=== PATIENT | female | born 1945 | race Caucasian/White ===

== ENCOUNTER 2019-09-17 11:06 | Inpatient (IN) | payer MEDICARE, OTHER ==
[~2019-09-17] VITALS: Ht 154.9 cm; Wt 63.6 kg
[~2019-09-17 11:06] MED LIST: ASPI81TA31 OR; AVONEX SQ; CALCTAB22 OR; DEXI30CA2 PO; LEVO50TA2 OR; LEVO75TA2 OR; MOTR200T4 PO; NORV5TAB OR; VICO5TAB OR; [UNRECOGNIZED DRUG - OTHER] OR; [UNRECOGNIZED DRUG - REMARK] IM
[2019-09-17] MEDS ORDERED: NS 1,000 ML IV ONE (12:00)
[2019-09-17] MEDS ORDERED: ONDANSETRON 4MG/2ML VIAL IV ONE (12:00)
[2019-09-17 12:19] LABS: BASO # 0.1 10^3/uL (0.0-0.2); BASO % 0.9 % (0.0-1.0); EOS # 0.1 10^3/uL (0.0-0.5); HEMATOCRIT 25.4 % (36.0-47.0); HEMOGLOBIN 7.3 g/dl (12.0-15.5); LYMPH # 1.7 10^3/uL (1.5-5.0); MEAN CORPUSCULAR HEMOGLOBIN 22.3 pg (27.0-33.0); MEAN CORPUSCULAR HGB CONC 28.7 g/dl (32.0-36.5); MEAN CORPUSCULAR VOLUME 77.7 fl (80.0-96.0); MONO # 0.7 10^3/uL (0.0-0.8); MONO % 10.1 % (0.0-5.0); NEUTROPHILS # 3.8 10^3/uL (1.5-8.5); NEUTROPHILS % 59.8 % (36.0-66.0); PLATELET COUNT, AUTOMATED 413 10^3/uL (150-450); RED BLOOD COUNT 3.27 10^6/uL (4.00-5.40); WHITE BLOOD COUNT 6.4 10^3/uL (4.0-10.0)
[2019-09-17] MEDS ORDERED: ISOVUE-370 76% 100ML VIAL As Ordered ONE (12:19)
[2019-09-17 12:29] LABS: INR 1.05; PROTHROMBIN TIME 13.4 SECONDS (11.8-14.0)
[2019-09-17 12:30] LABS: PARTIAL THROMBOPLASTIN TIME 24.4 SECONDS (25.0-38.4)
[2019-09-17 12:41] LABS: ALBUMIN 3.7 GM/DL (3.2-5.2); ALT/SGPT 20 U/L (12-78); BILIRUBIN,DIRECT < 0.1 MG/DL (0.0-0.2); BILIRUBIN,TOTAL 0.2 MG/DL (0.2-1.0); LIPASE 101 U/L (73-393); TOTAL PROTEIN 7.4 GM/DL (6.4-8.2)
[2019-09-17 12:43] LABS: CK-MB VALUE MASS 1.5 NG/ML (<3.6); CPK CREATINE PHOSPHOKINASE 63 U/L (26-192); MB/CK RELATIVE INDEX 2.38 (< OR =4); TROPONIN I < 0.02 NG/ML (< 0.10)
[2019-09-17] MEDS ORDERED: PANT40TA3 PO (13:07)
[2019-09-17] MEDS ORDERED: MAGN400C PO (13:07)
[2019-09-17] MEDS ORDERED: LEVO75TA4 PO (13:07)
[2019-09-17] MEDS ORDERED: PARO20TA3 PO (13:07)
[2019-09-17] MEDS ORDERED: LISI20TA19 PO (13:07)
[2019-09-17] MEDS ORDERED: VITA50005 PO (13:07)
[2019-09-17] MEDS ORDERED: GABA-843 PO (13:07)
[2019-09-17] MEDS ORDERED: FOLI1TAB11 PO (13:07)
[2019-09-17] MEDS ORDERED: CYAN100050 PO (15:06)
[2019-09-17] MEDS ORDERED: AMLO5TAB6 PO (15:06)
[2019-09-17] MEDS ORDERED: MAGN400T3 PO (15:06)
[2019-09-17 15:18] LABS: FERRITIN 4 NG/ML (8-252); IRON (FE) 229 UG/DL (50-170); PERCENT SATURATION 51.1 % (13.2-45.0); TOTAL IRON BINDING CAPACITY 448 UG/DL (250-450)
[2019-09-17 15:23] LABS: VITAMIN B12 LEVEL 813 PG/ML (247-911)
[2019-09-17 15:24] LABS: FOLATE > 24.0 NG/ML (>5.4)
[2019-09-17] MEDS: NS 1,000 ML IV SCH (15:30)
--- NOTE | 2019-09-17 15:31 | HPEPDOC ---
General Date of Admission 09/17/19 Date of Service: Sep 17, 2019 Chief Complaint The patient is a 74-year-old female admitted with a reason for visit of Abdominal Pain. Source: Patient Timing/Duration: Day(s) Severity: Mild Associated Symptoms: Vomiting History of Present Illness Patient 74 years old female with past medical history of multiple sclerosis, hypothyroidism, hypertension, dementia presented hospital with epigastric abdominal pain. Patient stated that for past few weeks she's has been having i ntermittent epigastric pain radiated her back. Patient described pain as a dull, 8 out of 10. Today patient developed a few episodes of vomiting with increased epigastric pain. In emergency room patient was found to have no leukocytosis, she is afebrile. She was found to have hemoglobin of 7.3. Lipase within normal limit. CT scan of abdomen and pelvis was done and preliminary result patient has a large hiatal hernia. Patient denies any fever, chills, chest pain, palpitations, diarrhea or dysuria Home Medications Scheduled Amlodipine Besylate (Amlodipine Besylate) 5 Mg Tablet, 5 MG PO QPM, (Reported) Cyanocobalamin (Vitamin B-12) (Vitamin B-12) 1,000 Mcg Tablet, 1,000 MCG PO QPM, (Reported) Ergocalciferol (Vitamin D2) (Vitamin D2) 50,000 Units Cap, 50,000 UNITS PO QWEEK, (Reported) Folic Acid (Folic Acid) 1 Mg Tablet, 1 MG PO QPM, (Reported) Gabapentin (Gabapentin) 300 Mg Capsule, 300 MG PO QPM, (Reported) Levothyroxine Sodium (Levothyroxine Sodium) 75 Mcg Tablet, 75 MCG PO QPM, (Reported) Lisinopril/Hydrochlorothiazide (Lisinopril-Hctz 20-12.5 mg Tab) 1 Each Tablet, 1 TAB PO QPM, (Reported) Magnesium Oxide (Magnesium Oxide) 400 Mg Tablet, 400 MG PO QPM, (Reported) Pantoprazole Sodium (Pantoprazole Sodium) 40 Mg Tablet.dr, 40 MG PO QPM, (Reported) Paroxetine HCl (Paroxetine HCl) 20 Mg Tablet, 20 MG PO QPM, (Reported) Allergies Coded Allergies: Penicillins (Verified Allergy, Mild, UNKNOWN REACTION PER FAMILY, 09/17/19) codeine (Verified Adverse Reaction, Unknown, N/V, DIZZINESS, 09/17/19) Past Medical History Medical History Multiple sclerosis, dementia, hypothyroidism, hypertension, dementia Surgical History Hysterectomy with bilateral ovariectomy due to ectopic Family History I personally reviewed family history and found not pertinent Social History * Smoker: Denies Alcohol: Denies Drugs: denies A-FIB/CHADSVASC A-FIB History Current/History of A-Fib/PAF?: No Current PO Anticoag Therapy: No Review of Systems Constitutional: Reports: Weakness; Denies: Chills, Fever Eyes: Denies: Pain ENT: Denies: Head Aches Skin: Denies: Rash, Lesions Pulmonary: Denies: Dyspnea Cardiovascular: Denies: Chest Pain Gastrointestinal: Reports: Nausea, Vomiting, Abdominal Pain; Denies: Diarrhea Genitourinary: Denies: Dysuria Hematologic: Denies: Bruising Endocrine: Denies: Polydipsia, Polyphagia Musculoskeletal: Denies: Neck Pain Neurological: Denies: Weakness Psych: Reports: Mood Normal Physical Examination General Exam: Positive: Alert, Cooperative Eye Exam: Positive: PERRLA ENT Exam: Positive: Atraumatic Neck Exam: Positive: Supple; Negative: JVD Chest Exam: Positive: Clear to auscultation Heart Exam: Positive: Rate Normal Telemetry: Positive: No significant arrhythmia Abdomen Exam: Positive: Normal bowel sounds, Tenderness (in epigastric area) Extremity Exam: Negative: Clubbing Skin Exam: Positive: Nl turgor and temperature Neuro Exam: Positive: Strength at 5/5 X4 ext, Cranial Nerves 3-12 NL Psych Exam: Positive: Mental status NL Vital Signs Vital Signs Date Time Temp Pulse Resp B/P (MAP) Pulse Ox O2 Delivery O2 Flow Rate FiO2 09/17/19 11:41 Manual Cuff/Auscultation Left Arm 09/17/19 11:07 97.8 78 20 99 Room Air Laboratory Data Labs 24H Laboratory Tests 2 09/17/19 11:58: Immature Granulocyte % (Auto) 0.2, Neutrophils (%) (Auto) 59.8, Lymphocytes (%) (Auto) 27.0, Monocytes (%) (Auto) 10.1H, Eosinophils (%) (Auto) 2.0, Basophils (%) (Auto) 0.9, Neutrophils # (Auto) 3.8, Lymphocytes # (Auto) 1.7, Monocytes # (Auto) 0.7, Eosinophils # (Auto) 0.1, Basophils # (Auto) 0.1, Nucleated Red Blood Cells % (auto) 0.0, Prothrombin Time 13.4, Prothromb Time International Ratio 1.05, Activated Partial Thromboplast Time 24.4L, Lactic Acid Level 1.4, Total Bilirubin 0.2, Direct Bilirubin < 0.1, Aspartate Amino Transf (AST/SGOT) 14, Alanine Aminotransferase (ALT/SGPT) 20, Alkaline Phosphatase 69, Total Creatine Kinase 63, Creatine Kinase MB 1.5, Creatine Kinase MB Relative Index 2.38, Troponin I < 0.02, Total Protein 7.4, Albumin 3.7, Albumin/Globulin Ratio 1.0L, Lipase 101 09/17/19 12:13: POC Glucose (Misc Panel) 110H, POC Sodium (Misc Panel) 141, POC Potassium (Misc Panel) 3.7, POC Chloride (Misc Panel) 106, POC Total CO2 (Misc Panel) 23.0, POC Blood Urea Nitrogen (Misc Panel 20, POC Ionized Calcium (Misc Panel) 4.8, POC Creatinine (Misc Panel) 1.0, POC Hematocrit (Misc Panel) 26.0L CBC/BMP Laboratory Tests 09/17/19 11:58 Assessment/Plan Patient 74 years old female with past medical history of multiple sclerosis, hypothyroidism, hypertension, dementia presented hospital with epigastric abdominal pain. Patient stated that for past few weeks she's has been having intermittent epigastric pain radiated her back. Patient described pain as a dull, 8 out of 10. Today patient developed a few episodes of vomiting with increased epigastric pain. In emergency room patient was found to have no leukocytosis, she is afebrile. She was found to have hemoglobin of 7.3. Lipase within normal limit. CT scan of abdomen and pelvis was done and preliminary result patient has a large hiatal hernia. Patient denies any fever, chills, chest pain, palpitations, diarrhea or dysuria Problems (1) Epigastric pain Status: Acute Problem Text: Differential diagnosis includes gastritis, esophagitis, peptic ulcer, AVM PPI IV Most likely patient will need colonoscopy and EGD H&H every 6 hours Appreciate/agree with GI consult (2) Hiatal hernia Status: Acute Problem Text: Can be precipitating factor of acute gastritis with bleeding (3) Acute blood loss anemia Status: Acute Problem Text: Most likely secondary to GI bleed given low MCV We will check iron panel, B12, folate We will transfuse if hemoglobin less than 7 Plan / VTE VTE Prophylaxis Ordered?: No VTE Exclusion Pharmacological: Active Bleeding SVITLANA HICKS DO Sep 17, 2019 15:31
--- NOTE | 2019-09-17 15:38 | REP ---
REASON FOR EXAM: Back pain. Assess for possible aortic dissection. CONTRAST: 100 mL of Isovue 370. The thoracic aorta is seen without aneurysmal dilatation or ectasia. There is no evidence of a dissection. The acceptably opacified pulmonary arteries are also within normal limits. There are no pleural or pericardial effusions. There is no mediastinal or hilar adenopathy. There is a large hiatal hernia. The imaged upper abdomen is otherwise within normal limits. The imaged osseous structures are within normal limits for the patient's age. Evaluation of the lung eastman shows 2 nodules in the left lower lobe both pleural-based one measuring 8 mm and the other measuring 5 mm. IMPRESSION: 1. There is no evidence of an intrathoracic arterial abnormality as described above. 2. Two left lower lobe pulmonary nodules, the largest of which measures 8 mm. According to the revised Fleischner Society criteria , this represents a category 4A nodule for which a 3-month followup CT is recommended. 3. There is a large hiatal hernia. Electronically Signed by Dawit Wheatley DO 09/17/2019 04:07 P
--- NOTE | 2019-09-17 15:47 | REP ---
REASON: Upper abdominal pain. PRIORS: None. CONTRAST 100 mL Isovue 370. In the liver there is a 1 cm sized cyst in the lateral segment of the left lobe. The liver is otherwise unremarkable. The gallbladder, spleen, pancreas, adrenal glands, and kidneys are within normal limits. The abdominal aorta and para-aortic regions are within normal limits. There is a large hiatal hernia. The bowel loops and their mesenteries are otherwise unremarkable. There is no free fluid or free air seen in the abdomen or pelvis. There is no evidence of an intra-abdominal or intrapelvic mass or adenopathy. Bone window technique through the exam shows the osseous structures to be within normal limits for the patient's age. IMPRESSION: 1. Large hiatal hernia. 2. Small simple hepatic cyst. Electronically Signed by Dawit Wheatley DO 09/17/2019 04:56 P
[2019-09-17 17:05] LABS: HEMATOCRIT 25.3 % (36.0-47.0); HEMOGLOBIN 7.1 g/dl (12.0-15.5)
[2019-09-17 17:40] VITALS: BP 152/72
--- NOTE | 2019-09-17 20:58 | ECGEPIP ---
[facility] - ED Test Date: 2019-09-17 Pat Name: HERMINIO WHEELER Department: Room: - Gender: Female Dog Obedience Instructor: KANDI : 1945 Requested By: Kika Turcios Order Number: [id number] Reading MD: Kika Turcios Measurements Intervals [place] Rate: 71 P: 21 MI: 159 QRS: -11 QRSD: 84 T: 29 QT: 386 QTc: 421 Interpretive Statements SINUS RHYTHM WITH SINUS ARRHYTHMIA NSTTW abnormalities NO PRIOR Electronically Signed on 09-17-2019 20:58:12 EDT by Kika Turcios
[2019-09-17] MEDS: LEVOTHYROXINE 75MCG TABLET (0.075MG) PO SCH (21:02)
[2019-09-17] MEDS: MAGNESIUM OXIDE 400 MG TAB (MAG-OX) PO SCH (21:02)
[2019-09-17] MEDS: GABAPENTIN 300 MG CAP PO SCH (21:02)
[2019-09-17] MEDS: PARoxetine 20 MG TAB PO SCH (21:03)
[2019-09-17] MEDS: PANTOPRAZOLE 40MG VIAL (C9113 PER 1) IV SCH (21:03)
[2019-09-17] MEDS: amLODIPine 5 MG TAB PO SCH (21:06)
[2019-09-17 21:26] LABS: HEMATOCRIT 24.8 % (36.0-47.0)
[2019-09-17 21:33] LABS: HEMOGLOBIN 6.9 g/dl (12.0-15.5)
[2019-09-17 22:00] VITALS: BP 124/73
[2019-09-17 22:40] VITALS: BP 131/59
[2019-09-17 22:55] VITALS: BP 145/64
[2019-09-17] MEDS: ACETAMINOPHEN TAB 650MG DOSE (2X325MG) PO PRN (23:03)
[2019-09-17 23:47] VITALS: BP 146/63
[2019-09-18] VITALS (9 sets, daily range): BP systolic 103–160; BP diastolic 55–92
[2019-09-18] MEDS: NS 1,000 ML IV SCH ×3 (02:40→21:47)
[2019-09-18 03:55] LABS: HEMATOCRIT 32.1 % (36.0-47.0); HEMOGLOBIN 9.7 g/dl (12.0-15.5)
[2019-09-18 06:39] LABS: HEMATOCRIT 32.6 % (36.0-47.0); HEMOGLOBIN 9.9 g/dl (12.0-15.5); MEAN CORPUSCULAR HEMOGLOBIN 24.6 pg (27.0-33.0); MEAN CORPUSCULAR HGB CONC 30.4 g/dl (32.0-36.5); MEAN CORPUSCULAR VOLUME 80.9 fl (80.0-96.0); PLATELET COUNT, AUTOMATED 366 10^3/uL (150-450); RED BLOOD COUNT 4.03 10^6/uL (4.00-5.40)
[2019-09-18 06:59] LABS: ALBUMIN 3.4 GM/DL (3.2-5.2); ALT/SGPT 17 U/L (12-78); BILIRUBIN,TOTAL 1.2 MG/DL (0.2-1.0); BLOOD UREA NITROGEN 12 MG/DL (7-18); CALCIUM LEVEL 8.3 MG/DL (8.8-10.2); CARBON DIOXIDE LEVEL 27 MEQ/L (21-32); CHLORIDE LEVEL 110 MEQ/L (98-107); CREATININE FOR GFR 0.95 MG/DL (0.55-1.30); GLOMERULAR FILTRATION RATE > 60.0 (>39); GLUCOSE, FASTING 87 MG/DL (70-100); MAGNESIUM LEVEL 2.2 MG/DL (1.8-2.4); SODIUM LEVEL 143 MEQ/L (136-145); TOTAL PROTEIN 6.6 GM/DL (6.4-8.2)
[2019-09-18] MEDS ORDERED: IRON SUCROSE 100MG 5ML VIAL (J1756 PER 1MG) IV SCH (08:15)
[2019-09-18] MEDS: PANTOPRAZOLE 40MG VIAL (C9113 PER 1) IV SCH ×2 (09:22→20:16)
[2019-09-18] MEDS ORDERED: IRON SUCROSE 200 MG in NS 100 ML OVER 1 HR IV ONE (10:00)
--- NOTE | 2019-09-18 12:28 | IPNPDOC ---
Text Note Date of Service The patient was seen on 09/18/19. NOTE Patient was seen and examined this morning. Denies any complaints. No overnight events PHYSICAL EXAMINATION: General: The patient is awake, alert, oriented x3, sitting up in the bed in no apparent distress. Head and Neck Exam: Extraocular muscles intact. Pupils equally round and reactive to light. Mucous membranes are moist. Neck is supple. There is no jugular venous distention (JVD). Cardiovascular: S1 and S2, regular rate. Trace edema of the bilateral lower extremities. Respiratory: Clear auscultation bilaterally Abdomen: Soft. Positive bowel sounds. Nontender. No organomegaly. Musculoskeletal: Clubbing of the fingernails, no cyanosis was noted. Central Nervous System (EXTERNAL GRINDER TENDER): No focal deficit. Power is 5/5 in all extremi ties. Assessment and plan Patient 74 years old female with past medical history of multiple sclerosis, hypothyroidism, hypertension, dementia presented hospital with epigastric abdominal pain. Patient stated that for past few weeks she's has been having intermittent epigastric pain radiated her back. Patient described pain as a dull, 8 out of 10. Patient also developed a few episodes of vomiting with increased epigastric pain. In emergency room patient was found to have no leukocytosis, she is afebrile. She was found to have hemoglobin of 7.3. Lipase within normal limit. CT scan of abdomen and pelvis was done and preliminary result patient has a large hiatal hernia. Patient denies any fever, chills, chest pain, palpitations, diarrhea or dysuria (1) Epigastric pain: Differential diagnosis includes gastritis, esophagitis, peptic ulcer, AVM. Continue IV PPI. GI has been consulted and the patient probably will require an endoscopy. The patient has extremely low iron levels as well as ferritin levels and definitely has some iron deficiency anemia going on. The patient will require possibly endoscopy as well as colonoscopy. Vision has had no screening colonoscopy so far and she 74 years old. Stool for occult blood will be ordered as well. (2) Hiatal hernia: Could be an ulcer related to hiatal hernia and for that reason GI is consulted (3) Acute blood loss anemia: Status post 2 units of PRBC Iron deficiency anemia with stream below ferritin and iron levels. IV iron has been initiated and the patient will be getting a possible colonoscopy and EGD by GI. We will continue to follow. We will transfuse if the hemoglobin is less than 7. DVT professor with SCDs Disposition unknown at this time VS,Nimabone, I+O VS, Fishbone, I+O Laboratory Tests 09/17/19 16:22 09/17/19 21:13 09/18/19 03:49 09/18/19 06:06 Vital Signs Date Time Temp Pulse Resp B/P (MAP) Pulse Ox O2 Delivery O2 Flow Rate FiO2 09/18/19 06:00 98.4 73 17 103/56 (72) 94 Room Air I&O- Last 24 Hours up to 6 AM 09/18/19 06:00 Intake Total 4825 ml Output Total 450 ml Balance 4375 ml MARJ CHUN MD Sep 18, 2019 12:28
[2019-09-18] MEDS: ACETAMINOPHEN TAB 650MG DOSE (2X325MG) PO PRN (13:16)
[2019-09-18] MEDS ORDERED: GOLYTELY SOLN 4000 ML BTL PO ONE (18:00)
--- NOTE | 2019-09-18 19:18 | CR.PDOC ---
General Date of Consultation: Sep 18, 2019 Referring Provider: SVITLANA HICKS DO Attending Physician: SCOTTY SAXENA MD Consultation Primary physician/ hospitalist: -Dr. Carrillo Reason for consult: -Severe symptomatic anemia HPI: 74-year-old female patient with HTN, hypothyroidism, multiple sclerosis, presented to ER for complaints of intermittent epigastric abdominal pain, and was noted to have severe anemia. GI was consulted for anemia. Patient reports having chronic upper abdominal pain, [id number] in severity, worsened with food intake, associated with decreased appetite and early satiety. Patient denies any use of OTC pain medications/NSAIDs, and blood thinning medications (except baby aspirin for primary cardiac prophylaxis). Patient also reports chronic constipation with bowel movements every 2-3 days. She denies any overt external bleeding, black stools, nosebleeds, vomiting of blood. Pertinent negative GI symptoms: Patient denies fever, sick contacts, recent travel, nausea, vomiting, diarrhea, or unintentional weight loss. No history of hematemesis, melena or hematochezia. Review of Systems: GI: as stated above CVS: No chest pain, No palpitations, No leg swelling. RS: No Shortness of breath, No Wheezing, no cough SLUICE TENDER: No dizziness, No motor weakness, No sensory problems Hematology: No bruising, No gum bleeding, Musculoskeletal: No joint pain, ambulating well. Skin: No rash : No hematuria, No burning sensation of the urine ENT: No ear discharge/ pain, No dysphagia. Eyes: No photophobia. Jaundice Home medications: reviewed. Antithrombotic agents: -Aspirin 81 MG Medical h/o: As above. Surgical h/o: None on abdomen. Social h/o: Alcohol: -Denies, smoking: Denies, IVDA/ drugs: [ ] . Family h/o of GI cancers - None Prior Endoscopies: None Prior GI evaluations: -None Exam: Vitals: reviewed General: Alert and oriented x 3, not in distress HEENT: Noted conjunctival pallor, no icterus. Normal oropharynx, NO cervical lymph nodes. Chest: symmetric with bilateral clear air entry, CVS: S1, S2 heard, normal, no murmurs . Abdomen: non-distended, no surgical scars, soft, non-tender, no palpable masses, normal bowel sounds heard. Rectal exam: Patient refused / Deferred at this time in view of scheduled colonoscopy. Extremities: no pedal edema, pulses palpable. SLUICE TENDER: no focal motor or sensory deficits. Moves all extremities Skin: no rash. Labs: reviewed. Imaging: reviewed. CT abdomen showed large hiatal hernia, small, simple hepatic cyst of 1 cm size. Impression: -- Severe anemia with epigastric pain and chronic constipation and no overt external bleeding and no prior endoscopies, -- DDx-- PUD vs AVM vs Colon polyps vs Colon cancer. Recommendations: - Patient educated about the test results, possible differential diagnoses and All questions answered. - Clear liquid diet until 4 hours prior to procedure. - Pantoprazole 40 mg twice daily for course of 8 weeks. - No contraindication for aspirin 81mg - Daily miralax for chronic constipation. - Will schedule for EGD and Colonoscopy after the bowel prep. The procedures, indications, risks (bleeding, perforation, infection, hypotension, respiratory depression, allergy, need for endotracheal intubation, surgery, colostomy, cardiac arrest, even ), benefits, limitations (e.g., missing a lesion), and all other alternatives (including no intervention) were explained to the patient who understood and agreed for the procedures. - post procedure recommendations as per operative notes. Plan of care discussed with patient and primary team. Patient verbalized understanding and agreed with the plan. Vital Signs/I&O Vital Signs Date Time Temp Pulse Resp B/P (MAP) Pulse Ox O2 Delivery O2 Flow Rate FiO2 09/18/19 14:00 97.7 68 18 160/77 (104) 94 Room Air I&O- Last 24 Hours up to 6 AM 09/18/19 06:00 Intake Total 4825 ml Output Total 450 ml Balance 4375 ml Laboratory Data Labs 24H Laboratory Tests 2 09/18/19 06:06: Reticulocyte # (auto) 70.6, Nucleated Red Blood Cells % (auto) 0.0, Percent Reticulocyte Count 1.8H, Reticulocyte Hemoglobin Equivalent 24.1, Anion Gap 6L, Glomerular Filtration Rate > 60.0, Calcium Level 8.3L, Magnesium Level 2.2, Total Bilirubin 1.2#H, Aspartate Amino Transf (AST/SGOT) 12, Alanine Aminotran sferase (ALT/SGPT) 17, Alkaline Phosphatase 60, Total Protein 6.6, Albumin 3.4, Albumin/Globulin Ratio 1.1L CBC/BMP Laboratory Tests 09/17/19 21:13 09/18/19 03:49 09/18/19 06:06 Allergies Coded Allergies: Penicillins (Verified Allergy, Mild, UNKNOWN REACTION PER FAMILY, 09/17/19) codeine (Verified Adverse Reaction, Unknown, N/V, DIZZINESS, 09/17/19) Home Medications Scheduled Amlodipine Besylate (Amlodipine Besylate) 5 Mg Tablet, 5 MG PO QPM, (Reported) Cyanocobalamin (Vitamin B-12) (Vitamin B-12) 1,000 Mcg Tablet, 1,000 MCG PO QPM, (Reported) Ergocalciferol (Vitamin D2) (Vitamin D2) 50,000 Units Cap, 50,000 UNITS PO QWEEK, (Reported) Folic Acid (Folic Acid) 1 Mg Tablet, 1 MG PO QPM, (Reported) Gabapentin (Gabapentin) 300 Mg Capsule, 300 MG PO QPM, (Reported) Levothyroxine Sodium (Levothyroxine Sodium) 75 Mcg Tablet, 75 MCG PO QPM, (Reported) Lisinopril/Hydrochlorothiazide (Lisinopril-Hctz 20-12.5 mg Tab) 1 Each Tablet, 1 TAB PO QPM, (Reported) Magnesium Oxide (Magnesium Oxide) 400 Mg Tablet, 400 MG PO QPM, (Reported) Pantoprazole Sodium (Pantoprazole Sodium) 40 Mg Tablet.dr, 40 MG PO QPM, (Reported) Paroxetine HCl (Paroxetine HCl) 20 Mg Tablet, 20 MG PO QPM, (Reported) SCOTTY SAXENA MD Sep 18, 2019 19:18
[2019-09-18] MEDS ORDERED: BISACODYL 5 MG TAB PO ONE (20:00)
[2019-09-18] MEDS: PARoxetine 20 MG TAB PO SCH (20:16)
[2019-09-18] MEDS: GABAPENTIN 300 MG CAP PO SCH (20:16)
[2019-09-18] MEDS: MAGNESIUM OXIDE 400 MG TAB (MAG-OX) PO SCH (20:16)
[2019-09-18] MEDS: LEVOTHYROXINE 75MCG TABLET (0.075MG) PO SCH (20:16)
[2019-09-18] MEDS: amLODIPine 5 MG TAB PO SCH (20:18)
[2019-09-19] VITALS (10 sets, daily range): BP systolic 121–147; BP diastolic 59–82
[2019-09-19 06:04] LABS: BASO # 0.1 10^3/uL (0.0-0.2); BASO % 1.4 % (0.0-1.0); EOS # 0.2 10^3/uL (0.0-0.5); EOS % 3.6 % (0.0-3.0); HEMATOCRIT 33.2 % (36.0-47.0); LYMPH # 1.1 10^3/uL (1.5-5.0); MEAN CORPUSCULAR HEMOGLOBIN 24.3 pg (27.0-33.0); MEAN CORPUSCULAR HGB CONC 30.1 g/dl (32.0-36.5); MEAN CORPUSCULAR VOLUME 80.8 fl (80.0-96.0); MONO # 0.7 10^3/uL (0.0-0.8); MONO % 12.1 % (0.0-5.0); NEUTROPHILS # 3.8 10^3/uL (1.5-8.5); NEUTROPHILS % 64.7 % (36.0-66.0); PLATELET COUNT, AUTOMATED 339 10^3/uL (150-450); RED BLOOD COUNT 4.11 10^6/uL (4.00-5.40); WHITE BLOOD COUNT 5.9 10^3/uL (4.0-10.0)
[2019-09-19 06:46] LABS: ALBUMIN 3.5 GM/DL (3.2-5.2); ALT/SGPT 18 U/L (12-78); BILIRUBIN,TOTAL 0.4 MG/DL (0.2-1.0); BLOOD UREA NITROGEN 6 MG/DL (7-18); CALCIUM LEVEL 8.4 MG/DL (8.8-10.2); CARBON DIOXIDE LEVEL 26 MEQ/L (21-32); CHLORIDE LEVEL 111 MEQ/L (98-107); CREATININE FOR GFR 0.86 MG/DL (0.55-1.30); GLOMERULAR FILTRATION RATE > 60.0 (>39); GLUCOSE, FASTING 93 MG/DL (70-100); POTASSIUM SERUM 3.6 MEQ/L (3.5-5.1); SODIUM LEVEL 145 MEQ/L (136-145)
[2019-09-19] MEDS: PANTOPRAZOLE 40MG VIAL (C9113 PER 1) IV SCH ×2 (08:04→20:44)
[2019-09-19] MEDS: NS 1,000 ML IV SCH (08:04)
[2019-09-19] MEDS ORDERED: IRON SUCROSE 100MG 5ML VIAL (J1756 PER 1MG) IV ONE (09:00)
[2019-09-19] MEDS ORDERED: IRON SUCROSE 200 MG in NS 100 ML OVER 1 HR IV ONE (11:00)
--- NOTE | 2019-09-19 11:13 | IPNPDOC ---
Text Note Date of Service The patient was seen on 09/19/19. NOTE Patient was seen and examined this morning. Denies any complaints. No overnight events. Scheduled for colonoscopy and EGD today PHYSICAL EXAMINATION: General: The patient is awake, alert, oriented x3, sitting up in the bed in no apparent distress. Head and Neck Exam: Extraocular muscles intact. Pupils equally round and reactive to light. Mucous membranes are moist. Neck is supple. There is no jugular venous distention (JVD). Cardiovascular: S1 and S2, regular rate. Trace edema of the bilateral lower extremities. Respiratory: Clear auscultation bilaterally Abdomen: Soft. Positive bowel sounds. Nontender. No organomegaly. Musculoskeletal: Clubbing of the fingernails, no cyanosis was noted. Central Nervous System (FORESTRY WORKERS): No focal deficit. Power is 5/5 in all extremities. Assessment and plan Patient 74 years old female with past medical history of multiple sclerosis, hypothyroidism, hypertension, dementia presented hospital with epigastric abdominal pain. Patient stated that for past few weeks she's has been having intermittent epigastric pain radiated her back. She was found to have hemoglobin of 7.3 and has been transfused 2 units of PRBC so far. Lipase within normal limit. CT scan of abdomen and pelvis was done which only showed large hiatal hernia.. She has not had a colonoscopy for screening purposes or an EGD , and iron studies were showing severe iron deficiency anemia. Her ferritin is almost negligible and percentage iron is very low. For that reason, she will definitely require an 8 EGD and a colonoscopy. GI is planning to do today. As the ferritin was extremely low. The patient was given 200 of Venofer on 09/18/19 and will be given 1 more dose today on 09/19/19. I would recommend giving 1 more dose before she can be discharged tomorrow or day after and then iron can be switched to oral. Reticulocyte count. Also has been ordered. (1) Epigastric pain: Differential diagnosis includes gastritis, esophagitis, peptic ulcer, AVM or any colorectal cancer. Continue IV PPI. GI has been consulted and the patient is scheduled for both endoscopy and colonoscopy today. The patient has extremely low iron levels as well as ferritin levels and definitely has some iron deficiency anemia going on. (2) Hiatal hernia: Could be an ulcer related to hiatal hernia and for that reason GI is consulted (3) Acute blood loss anemia: Status post 2 units of PRBC Iron deficiency anemia with stream below ferritin and iron levels. IV iron has been initiated. We will continue to follow. We will transfuse if the hemoglobin is less than 7. DVT prophylaxis with SCDs Disposition unknown at this time. Eventually will go home VS,Fishbone, I+O VS, Fishbone, I+O Laboratory Tests 09/19/19 05:45 Vital Signs Date Time Temp Pulse Resp B/P (MAP) Pulse Ox O2 Delivery O2 Flow Rate FiO2 09/19/19 06:00 98.3 64 16 124/59 (80) 99 Room Air I&O- Last 24 Hours up to 6 AM 09/19/19 06:00 Intake Total 1330 ml Output Total 1100 ml Balance 230 ml MARJ CHUN MD Sep 19, 2019 11:13
[2019-09-19] MEDS ORDERED: ONDANSETRON 4MG/2ML VIAL As Ordered ONE (13:29)
[2019-09-19] MEDS ORDERED: propofoL 200 MG/20 ML VIAL As Ordered ONE ×2 (13:29→13:52)
[2019-09-19] MEDS ORDERED: LIDOCAINE 2% 100MG/5ML SDV (FOR ANES.) As Ordered ONE ×2 (13:29→13:39)
[2019-09-19] MEDS ORDERED: dexameTHASONE 4 MG/ML 1ML VIAL (J1100 PER 1MG) As Ordered ONE (13:29)
[2019-09-19] MEDS ORDERED: LR 1,000 ML IV SCH (15:45)
[2019-09-19] MEDS ORDERED: ONDANSETRON 4MG/2ML VIAL IV PRN (15:45)
--- NOTE | 2019-09-19 15:51 | ROOR ---
Patient Name: Zaina Hammond Procedure Date: 09/19/2019 2:05 PM Date of : 1945 Age: 74 Room: Main OR Gender: Female Note Status: Finalized Procedure: Upper GI endoscopy Indications: Epigastric abdominal pain, Iron deficiency anemia Providers: Allan Daniel MD Referring MD: Amor Rojas Do Requesting Provider: Medicines: Monitored Anesthesia Care Complications: No immediate complications. Procedure: Pre-Anesthesia Assessment: - Prior to the procedure, a History and Physical was performed, and patient medications and allergies were reviewed. The patient is competent. The risks and benefits of the procedure and the sedation options and risks were discussed with the patient. All questions were answered and informed consent was obtained. Patient identification and proposed procedure were verified by the physician, the nurse and the anesthesiologist in the procedure room. Mental Status Examination: alert and oriented. Airway Examination: normal oropharyngeal airway and neck mobility. Respiratory Examination: clear to auscultation. CV Examination: normal. Prophylactic Antibiotics: The patient does not require prophylactic antibiotics. Prior Anticoagulants: The patient has taken no previous anticoagulant or antiplatelet agents. ASA Grade Assessment: II - A patient with mild systemic disease. After reviewing the risks and benefits, the patient was deemed in satisfactory condition to undergo the procedure. The anesthesia plan was to use monitored anesthesia care (MAC). Immediately prior to administration of medications, the patient was re-assessed for adequacy to receive sedatives. The heart rate, respiratory rate, oxygen saturations, blood pressure, adequacy of pulmonary ventilation, and response to care were monitored throughout the procedure. The physical status of the patient was re-assessed after the procedure. The Endoscope was introduced through the mouth, and advanced to the second part of duodenum. The upper GI endoscopy was accomplished without difficulty. The patient tolerated the procedure well. Findings: LA Grade C (one or more mucosal breaks continuous between tops of 2 or more mucosal folds, less than 75% circumference) esophagitis with no bleeding was found 30 to 35 cm from the incisors. One linear esophageal ulcer with no bleeding and no stigmata of recent bleeding was found 32 to 34 cm from the incisors. The lesion was less than one mm in largest dimension. A large hiatal hernia was present. Scattered mild inflammation characterized by erythema and granularity was found in the gastric antrum. Biopsies were taken with a cold forceps for Helicobacter pylori testing. Verification of patient identification for the specimen was done by the physician and nurse using the patient's name, date and medical record number. Estimated blood loss was minimal. The duodenal bulb and second portion of the duodenum were normal. Impression: - LA Grade C reflux and erosive esophagitis. - Non-bleeding esophageal ulcer. - Large hiatal hernia. - Gastritis. Biopsied. - Normal duodenal bulb and second portion of the duodenum. Recommendation: - Patient has a contact number available for emergencies. The signs and symptoms of potential delayed complications were discussed with the patient. Return to normal activities tomorrow. Written discharge instructions were provided to the patient. - High fiber diet. - Continue present medications. - Await pathology results. - Use Protonix (pantoprazole) 40 mg PO twice daily - to be taken in morning (1/2 hour before breakfast) and at bedtime ( atleast 3 hours after last meal) for 3 months. - Use sucralfate suspension 1 gram PO QID for 4 weeks. - Follow an antireflux regimen. - Repeat upper endoscopy in 3 months to check healing. - Telephone GI clinic for pathology results in 2 weeks. - Return to GI clinic in [facility] (address [address], [address], [place], [address]) in 4 -- 6 weeks. Please call GI clinic @ [phone] for apppointment date and time. - Return to primary care physician. Allan Daniel MD Allan Daniel MD 09/19/2019 3:50:52 PM Electronically signed by Allan Daniel MD Number of Addenda: 0 Note Initiated On: 09/19/2019 2:05 PM Estimated Blood Loss: Estimated blood loss: none.
--- NOTE | 2019-09-19 15:59 | ROOR ---
Patient Name: Zaina Hammond Procedure Date: 09/19/2019 2:08 PM Date of : 1945 Age: 74 Room: Main OR Gender: Female Note Status: Finalized Procedure: Colonoscopy Indications: Iron deficiency anemia, Unexplained iron deficiency anemia Providers: Allan Daniel MD Referring MD: Amor Rojas Do Requesting Provider: Medicines: Monitored Anesthesia Care Complications: No immediate complications. Procedure: Pre-Anesthesia Assessment: - Prior to the procedure, a History and Physical was performed, and patient medications and allergies were reviewed. The patient is competent. The risks and benefits of the procedure and the sedation options and risks were discussed with the patient. All questions were answered and informed consent was obtained. Patient identification and proposed procedure were verified by the physician, the nurse and the anesthesiologist in the procedure room. Mental Status Examination: alert and oriented. Airway Examination: normal oropharyngeal airway and neck mobility. Respiratory Examination: clear to auscultation. CV Examination: normal. Prophylactic Antibiotics: The patient does not require prophylactic antibiotics. Prior Anticoagulants: The patient has taken no previous anticoagulant or antiplatelet agents. ASA Grade Assessment: II - A patient with mild systemic disease. After reviewing the risks and benefits, the patient was deemed in satisfactory condition to undergo the procedure. The anesthesia plan was to use monitored anesthesia care (MAC). Immediately prior to administration of medications, the patient was re-assessed for adequacy to receive sedatives. The heart rate, respiratory rate, oxygen saturations, blood pressure, adequacy of pulmonary ventilation, and response to care were monitored throughout the procedure. The physical status of the patient was re-assessed after the procedure. The Colonoscope was introduced through the anus and advanced to the terminal ileum, with identification of the appendiceal orifice and IC valve. The colonoscopy was performed without difficulty. The patient tolerated the procedure well. The quality of the bowel preparation was good. The terminal ileum, ileocecal valve, appendiceal orifice, and rectum were photographed. Scope insertion time was 6 minutes. Scope withdrawal time was 10 minutes. The total duration of the procedure was 16 minutes. Findings: The perianal and digital rectal examinations were normal. The terminal ileum appeared normal. Multiple small and large-mouthed diverticula were found from sigmoid to ascending colon. There was no evidence of diverticular bleeding. A 6 mm polyp was found in the rectum. The polyp was sessile. The polyp was removed with a cold biopsy forceps. Resection and retrieval were complete. Verification of patient identification for the specimen was done by the physician and nurse using the patient's name, date and medical record number. Estimated blood loss was minimal. A scar was found from sigmoid to splenic flexure. The scar tissue was healthy in appearance, likely healed from ischemic ulcer. The scar tissue was longitudinal and located in the watershed area of [place] and [place] teritories. Non-bleeding external and internal hemorrhoids were found during retroflexion. The hemorrhoids were medium-sized. Impression: - The examined portion of the ileum was normal. - Moderate diverticulosis from sigmoid to ascending colon. There was no evidence of diverticular bleeding. - One 6 mm polyp in the rectum, removed with a cold biopsy forceps. Resected and retrieved. - Scar from sigmoid to splenic flexure. - Non-bleeding external and internal hemorrhoids. Recommendation: - Patient has a contact number available for emergencies. The signs and symptoms of potential delayed complications were discussed with the patient. Return to normal activities tomorrow. Written discharge instructions were provided to the patient. - High fiber diet. - Continue present medications. - Miralax 1 capful (17 grams) in 8 ounces of water PO BID (dose to be adjusted to avoid constipation). - Await pathology results. - Adequate hydration and avoid Hypotension. - Follow the recommendations as per the other procedure note. - Repeat colonoscopy in 5-10 years for surveillance based on pathology results and depending on clinical and functional status. - Return to GI clinic in [facility] (address [address], [address], [place], [facility]) in 4 -- 6 weeks. Please call GI clinic @ [phone] for apppointment date and time. - Return to primary care physician. Allan Danile MD Allan Daniel MD 09/19/2019 3:59:12 PM Electronically signed by Allan Daniel MD Number of Addenda: 0 Note Initiated On: 09/19/2019 2:08 PM Estimated Blood Loss: Estimated blood loss was minimal.
[2019-09-19] MEDS: ACETAMINOPHEN TAB 650MG DOSE (2X325MG) PO PRN (16:30)
[2019-09-19] MEDS: PARoxetine 20 MG TAB PO SCH (20:42)
[2019-09-19] MEDS: LEVOTHYROXINE 75MCG TABLET (0.075MG) PO SCH (20:42)
[2019-09-19] MEDS: GABAPENTIN 300 MG CAP PO SCH (20:43)
[2019-09-19] MEDS: MAGNESIUM OXIDE 400 MG TAB (MAG-OX) PO SCH (20:43)
[2019-09-19] MEDS: amLODIPine 5 MG TAB PO SCH (20:44)
[2019-09-20 05:52] LABS: BASO % 0.3 % (0.0-1.0); HEMATOCRIT 32.8 % (36.0-47.0); LYMPH # 0.9 10^3/uL (1.5-5.0); LYMPH % 15.5 % (24.0-44.0); MEAN CORPUSCULAR HEMOGLOBIN 24.8 pg (27.0-33.0); MEAN CORPUSCULAR HGB CONC 30.5 g/dl (32.0-36.5); MEAN CORPUSCULAR VOLUME 81.2 fl (80.0-96.0); MONO # 0.6 10^3/uL (0.0-0.8); NEUTROPHILS # 4.5 10^3/uL (1.5-8.5); NEUTROPHILS % 73.5 % (36.0-66.0); PLATELET COUNT, AUTOMATED 341 10^3/uL (150-450); RED BLOOD COUNT 4.04 10^6/uL (4.00-5.40); WHITE BLOOD COUNT 6.1 10^3/uL (4.0-10.0)
[2019-09-20 06:00] VITALS: BP 134/61
[2019-09-20 06:15] LABS: ALBUMIN 3.3 GM/DL (3.2-5.2); ALT/SGPT 18 U/L (12-78); BILIRUBIN,TOTAL 0.3 MG/DL (0.2-1.0); BLOOD UREA NITROGEN 8 MG/DL (7-18); CALCIUM LEVEL 8.4 MG/DL (8.8-10.2); CARBON DIOXIDE LEVEL 27 MEQ/L (21-32); CHLORIDE LEVEL 110 MEQ/L (98-107); GLOMERULAR FILTRATION RATE > 60.0 (>39); GLUCOSE, FASTING 97 MG/DL (70-100); POTASSIUM SERUM 3.5 MEQ/L (3.5-5.1); SODIUM LEVEL 145 MEQ/L (136-145); TOTAL PROTEIN 6.9 GM/DL (6.4-8.2)
[2019-09-20] MEDS: PANTOPRAZOLE 40MG VIAL (C9113 PER 1) IV SCH (08:46)
[2019-09-20] MEDS ORDERED: MIRA3350 PO (09:16)
[2019-09-20] MEDS ORDERED: PANT40TA3 PO (09:16)
[2019-09-20] MEDS ORDERED: SUCR1SS PO (09:16)
--- NOTE | 2019-09-21 20:37 | DS.PDOC ---
Discharge Summary General Date of Admission Sep 17, 2019 at 15:10 Date of Discharge 09/20/19 Attending Physician: Aletha Gonzalez MD Discharge Summary HISTORY OF PRESENT ILLNESS: Patient 74 years old female with past medical history of multiple sclerosis, hypothyroidism, hypertension, dementia presented hospital with epigastric abdominal pain. Patient stated that for past few weeks she's has been having intermittent epigastric pain radiated her back. Patient described pain as a dull, 8 out of 10. Today patient developed a few episodes of vomiting with increased epigastric pain. In emergency room patient was found to have no leukocytosis, she is afebrile. She was found to have hemoglobin of 7.3. Lipase within normal limit. CT scan of abdomen and pelvis was done and preliminary result patient has a large hiatal hernia. Patient denies any fever, chills, chest pain, palpitations, diarrhea or dysuria. Patient admitted for symptomatic anemia, r/o GI bleed. HOSPITAL COURSE: During her hospital stay, the patient was transfused 2 units of PRBC. Lipase within normal limit. CT scan of abdomen and pelvis was done which only showed large hiatal hernia. She has not had a colonoscopy for screening purposes or an EGD , and iron studies were showing severe iron deficiency anemia. Her ferritin is almost negligible and percentage iron is very low. For that reason, she required an EGD and a colonoscopy. EGD showed esophagitis and nonbleeding esophageal ulcer. She was kept on sulcralfate, PPI BID. As the ferritin was extremely low, patient was given several doses of venofer. H&H remained improved. Recommendations by GI included high-fiber diet, MiraLAX, adequate hydration and a repeat colonoscopy in 510 years after colonoscopy done this admission. Pathology results from colonoscopy are pending and she is to return to the GI clinic and call for pathology in the next several weeks. Since her EGD showed grade C reflux and erosive esophagitis along with a nonbleeding esophageal ulcer and large hiatal hernia, the patient is to continue with Pr otonix twice a day, sucralfate, repeat upper endoscopy in 3 months to check healing. Again pathology was done and the patient should call the office in 2 weeks to follow-up. At the time of discharge the patient denied any chest pain, shortness of breath, abdominal pain, fevers, chills, increased bleeding. ROS: Negative except for what is mentioned above. PMH: Multiple sclerosis, dementia, hypothyroidism, hypertension, dementia PAST SURGICAL HISTORY: Hysterectomy with bilateral ovariectomy due to ectopic FAMILY HISTORY: I personally reviewed family history and found not pertinent SOCIAL HISTORY: Smoker: Denies Alcohol: Denies Drugs: denies ALLERGIES: Please see below. DISCHARGE MEDICATIONS: Please see below. PHYSICAL EXAMINATION: General: The patient is awake, alert, oriented x3, sitting up in the bed in no apparent distress. Head and Neck Exam: Extraocular muscles intact. Pupils equally round and reactive to light. Mucous membranes are moist. Neck is supple. There is no jugular venous distention (JVD). Cardiovascular: S1 and S2, regular rate. Trace edema of the bilateral lower extremities. Respiratory: Clear auscultation bilaterally Abdomen: Soft. Positive bowel sounds. Nontender. No organomegaly. Musculoskeletal: Clubbing of the fingernails, no cyanosis was noted. Central Nervous System (PROPULSION GENERATOR REPAIRER): No focal deficit. Power is 5/5 in all extremities. LABORATORY: Please see below ASSESSMENT: Patient 74 years old female with past medical history of multiple sclerosis, hypothyroidism, hypertension, dementia presented hospital with epigastric abdominal pain. Patient stated that for past few weeks she's has been having intermittent epigastric pain radiated her back. She was found to have hemoglobin of 7.3 and has been transfused 2 units of PRBC so far. Lipase within normal limit. CT scan of abdomen and pelvis was done which only showed large hiatal hernia.. She has not had a colonoscopy for screening purposes or an EGD , and iron studies were showing severe iron deficiency anemia. Her ferritin is almost negligible and percentage iron is very low. For that reason, she will definitely require an 8 EGD and a colonoscopy. GI is planning to do today. As the ferritin was extremely low. The patient was given 200 of Venofer on 09/18/19 and will be given 1 more dose today on 09/19/19. I would recommend giving 1 more dose before she can be discharged tomorrow or day after and then iron can be switched to oral. Reticulocyte count. Also has been ordered. 1. Epigastric pain secondary to gastritis, nonbleeding esophageal ulcer, erosive esophagitis, large hiatal hernia -Much improved -Continue with high-fiber diet, PPI twice a day, sucralfate 4 times a day for 4 weeks -Repeat upper endoscopy in 3 months to check healing The patient should call the GI clinic for pathology results in 2 weeks and return to the clinic in 46 weeks for a follow-up appointment 2. Acute blood loss anemia likely secondary to gastritis, erosive esophagitis, questionable nonbleeding esophageal ulcer and iron deficiency anemia - Status post 2 units of PRBC, WBC stable - Low iron levels s/p several doses of Venofer - Continue with oral supplementation on discharge - Monitor for signs of bleeding after discharge - PCP should check CBC regularly and continue with regimen under problem #1 I DISPOSITION: Discharge home today in improved condition. F/u with PCP, GI cli abe as scheduled TIME SPENT ON DISCHARGE: Greater than 30 minutes. Vital Signs/I&Os Vital Signs Date Time Temp Pulse Resp B/P (MAP) Pulse Ox O2 Delivery O2 Flow Rate FiO2 09/20/19 06:00 98.0 74 8 134/61 (85) 96 09/19/19 20:55 Room Air I&O- Last 24 Hours up to 6 AM 09/21/19 06:00 Intake Total 300 ml Output Total 0 ml Balance 300 ml Laboratory Data Labs 24H Laboratory Tests 2 09/21/19 11:17: Lab Scanned Report Transfusion Record Microbiology Microbiology 09/19/19 Stool Occult Blood ([facility]) - Final, Complete 09/19/19 Respiratory Virus Panel (PCR) ([facility]KO) - Final, Complete Discharge Medications Scheduled Amlodipine Besylate (Amlodipine Besylate) 5 Mg Tablet, 5 MG PO QPM, (Reported) Cyanocobalamin (Vitamin B-12) (Vitamin B-12) 1,000 Mcg Tablet, 1,000 MCG PO QPM, (Reported) Ergocalciferol (Vitamin D2) (Vitamin D2) 50,000 Units Cap, 50,000 UNITS PO QWEEK, (Reported) Folic Acid (Folic Acid) 1 Mg Tablet, 1 MG PO QPM, (Reported) Gabapentin (Gabapentin) 300 Mg Capsule, 300 MG PO QPM, (Reported) Levothyroxine Sodium (Levothyroxine Sodium) 75 Mcg Tablet, 75 MCG PO QPM, (Reported) Lisinopril/Hydrochlorothiazide (Lisinopril-Hctz 20-12.5 mg Tab) 1 Each Tablet, 1 TAB PO QPM, (Reported) Magnesium Oxide (Magnesium Oxide) 400 Mg Tablet, 400 MG PO QPM, (Reported) Pantoprazole Sodium (Pantoprazole Sodium) 40 Mg Tablet.dr, 40 MG PO BID Paroxetine HCl (Paroxetine HCl) 20 Mg Tablet, 20 MG PO QPM, (Reported) Polyethylene Glycol 3350 (Miralax) 119 Gm Powder, 17 GRAM PO BID for constipation dissolve in water Stop if having increased loose stools and switch to daily as needed for constipation Sucralfate (Carafate) 1 Gm/10 Ml Oral.susp, 10 ML PO QID before food Allergies Coded Allergies: Penicillins (Verified Allergy, Mild, UNKNOWN REACTION PER FAMILY, 09/17/19) codeine (Verified Adverse Reaction, Unknown, N/V, DIZZINESS, 09/17/19) Aletha Gonzalez MD Sep 21, 2019 20:37
== END 2019-09-20 12:07 | disposition home or self-care (01) | DRG 392 ==
LOC: M ED 11:06 → M ED INP 15:10 → ENRESERV 16:21 → M MSPAV 17:37
PROVIDERS: ADMIT Internal Medicine; ATTEND Internal Medicine
PROC: 30233N1 Transfusion of Nonautologous Red Blood Cells into Peripheral Vein, Percutaneous Approach (ICD-10-PCS; 2019-09-17)
PROC: 0DBP8ZX Excision of Rectum, Via Natural or Artificial Opening Endoscopic, Diagnostic (ICD-10-PCS; 2019-09-19)
PROC: 0DB78ZX Excision of Stomach, Pylorus, Via Natural or Artificial Opening Endoscopic, Diagnostic (ICD-10-PCS; principal; 2019-09-19 13:40)
DX: K29.70 Gastritis, unspecified, without bleeding (principal); D62 Acute posthemorrhagic anemia; K22.10 Ulcer of esophagus without bleeding; D12.8 Benign neoplasm of rectum; K44.9 Diaphragmatic hernia without obstruction or gangrene; G35 Multiple sclerosis; E03.9 Hypothyroidism, unspecified; I10 Essential (primary) hypertension; F03.90 Unspecified dementia, unspecified severity, without behavioral disturbance, psychotic disturbance, mood disturbance, and anxiety; K59.09 Other constipation; K57.30 Diverticulosis of large intestine without perforation or abscess without bleeding; K64.8 Other hemorrhoids; K64.4 Residual hemorrhoidal skin tags; K21.0 Gastro-esophageal reflux disease with esophagitis; R10.13 Epigastric pain; Z79.899 Other long term (current) drug therapy; Z88.5 Allergy status to narcotic agent; Z88.0 Allergy status to penicillin; Z11.59 Encounter for screening for other viral diseases